=== PATIENT | female | born 1990 | race African-American/Black ===

== ENCOUNTER 2016-07-02 10:18 | Emergency (ER) | payer OTHER ==
[~2016-07-02] VITALS: Ht 167.6 cm; Wt 100.0 kg
[~2016-07-02 10:18] MED LIST: DOXY100C PO; MAXI5O EACH EYE; TRIA0.1L TOPICAL
[2016-07-02 10:20] VITALS: BP 132/73; PULSE 86; RESP 16; TEMP 97.7; O2SAT 98
[2016-07-02] MEDS ORDERED: SODIUM CHLOR 0.9% 1000 ML INJ 1,000 ML IV SCH (10:29)
[2016-07-02] MEDS ORDERED: ONDANSETRON HCL 4 MG/2 ML VIAL IVP ONE (10:30)
[2016-07-02] MEDS ORDERED: SODIUM CHLORIDE 0.9% FLUSH 5 ML FLUSH IVF PRN (10:30)
--- NOTE | 2016-07-02 10:32 | PD ---
HPI Chief Complaint: abdominal pain Time Seen by Provider: 10:29 Travel History International Travel<30 days: No Contact w/Intl Traveler<30days: No Traveled to known affect area: No History of Present Illness HPI 26-year-old female with no significant past medical issues, presents to the ER today because of one week history of lower abdominal pain, intermittent nausea and vomiting, currently abdominal pain as a 7 out of 10. She denies any urinary symptoms, fevers, diarrhea, vaginal discharge, or any other symptoms. She does not know of any sick contacts. Modifying Factors: None Associated Signs & Symptoms: Lower abdominal pains, nausea and vomiting intermittently for one week Risk Factors: None PFSH Past Medical History Asthma: Yes Diminished Hearing: No Reproductive: Yes (PCOS) Respiratory: Yes (asthma) : 3 Para: 1 Miscarriage: 2 Past Surgical History Section: Yes Social History Alcohol Use: Yes (occasional) Tobacco Use: No Substance Use: No Allergies-Medications (Allergen,Severity, Reaction): Coded Allergies: Penicillin (Verified Allergy, Severe, THROAT CALDERÓN, 07/02/16) Reported Meds & Prescriptions Reported Meds & Active Scripts Active Reported Multiple Vitamin 1 Tab 1 Tab PO DAILY Review of Systems Except as stated in HPI: all other systems reviewed are Neg Physical Exam Narrative GENERAL: Well-nourished, well-developed young -[place] female patient in no acute distress. SKIN: Warm and dry. HEAD: Normocephalic. EYES: No scleral icterus. No injection or drainage. NECK: Supple, trachea midline. CARDIOVASCULAR: Regular rate and rhythm without murmurs, gallops, or rubs. RESPIRATORY: Breath sounds equal bilaterally. No accessory muscle use. GASTROINTESTINAL: Abdomen soft, mild lower abdominal and diffuse tenderness without guarding or rebound, nondistended. MUSCULOSKELETAL: No cyanosis, or edema. BACK: Nontender without obvious deformity. No CVA tenderness. Data Data Last Documented VS Vital Signs Date Time Temp Pulse Resp B/P Pulse Ox O2 Delivery O2 Flow Rate FiO2 07/02/16 10:20 97.7 86 16 132/73 98 Room Air Orders Complete Blood Count With Diff (07/02/16 10:29) Comprehensive Metabolic Panel (07/02/16 10:29) Lipase (07/02/16 10:29) Urinalysis - C+S If Indicated (07/02/16 10:29) Iv Access Insert/Monitor (07/02/16 10:29) Ecg Monitoring (07/02/16 10:29) Oximetry (07/02/16 10:29) Ondansetron Inj (Zofran Inj) (07/02/16 10:30) Sodium Chlor 0.9% 1000 Ml Inj (Ns 1000 M (07/02/16 10:29) Sodium Chloride 0.9% Flush (Ns Flush) (07/02/16 10:30) Ed Urine Pregnancytest Poc (07/02/16 10:29) Urine Culture (07/02/16 11:10) Labs Laboratory Tests Test 07/02/16 07/02/16 11:10 11:25 Urine Color YELLOW Urine Turbidity HAZY Urine pH 6.0 Urine Specific [place] 1.028 Urine Protein TRACE mg/dL Urine Glucose (UA) NEG mg/dL Urine Ketones NEG mg/dL Urine Occult Blood SMALL Urine Nitrite NEG Urine Bilirubin NEG Urine Urobilinogen LESS THAN 2.0 MG/DL Urine Leukocyte Esterase NEG Urine RBC 10 /hpf Urine WBC 1 /hpf Urine Squamous Epithelial 9 /hpf Cells Urine Bacteria MOD /hpf Urine Hyaline Casts 1 /lpf Urine Mucus MANY /lpf Microscopic Urinalysis Comment CULTURE INDICATED White Blood Count 6.5 TH/MM3 Red Blood Count 4.21 MIL/MM3 Hemoglobin 12.5 GM/DL Hematocrit 37.4 % Mean Corpuscular Volume 88.8 FL Mean Corpuscular Hemoglobin 29.8 PG Mean Corpuscular Hemoglobin 33.5 % Concent Red Cell Distribution Width 13.0 % Platelet Count 346 TH/MM3 Mean Platelet Volume 8.2 FL Neutrophils (%) (Auto) 60.2 % Lymphocytes (%) (Auto) 30.8 % Monocytes (%) (Auto) 6.4 % Eosinophils (%) (Auto) 1.5 % Basophils (%) (Auto) 1.1 % Neutrophils # (Auto) 3.9 TH/MM3 Lymphocytes # (Auto) 2.0 TH/MM3 Monocytes # (Auto) 0.4 TH/MM3 Eosinophils # (Auto) 0.1 TH/MM3 Basophils # (Auto) 0.1 TH/MM3 CBC Comment DIFF FINAL Differential Comment Sodium Level 141 MEQ/L Potassium Level 3.7 MEQ/L Chloride Level 109 MEQ/L Carbon Dioxide Level 26.3 MEQ/L Anion Gap 6 MEQ/L Blood Urea Nitrogen 7 MG/DL Creatinine 0.62 MG/DL Estimat Glomerular Filtration 139 ML/MIN Rate Random Glucose 78 MG/DL Calcium Level 8.0 MG/DL Total Bilirubin 0.2 MG/DL Aspartate Amino Transf 20 U/L (AST/SGOT) Alanine Aminotransferase 30 U/L (ALT/SGPT) Alkaline Phosphatase 63 U/L Total Protein 6.7 GM/DL Albumin 3.2 GM/DL Lipase 130 U/L MDM Medical Decision Making Medical Screen Exam Complete: Yes Emergency Medical Condition: Yes Medical Record Reviewed: Yes Interpretation(s) Laboratory Tests Test 07/02/16 07/02/16 11:10 11:25 Urine Turbidity HAZY (CLEAR) Urine Occult Blood SMALL (NEG) Urine RBC 10 /hpf (0-3) Urine Bacteria MOD /hpf (NONE) Urine Mucus MANY /lpf (OCC) Chloride Level 109 MEQ/L (98-107) Calcium Level 8.0 MG/DL (8.5-10.1) Albumin 3.2 GM/DL (3.4-5.0) Differential Diagnosis Lower abdominal discomfort, nausea, vomitinggastroenteritis versus UTI versus Narrative Course Abdomen is benign and I do not suspect an acute intra-abdominal process. Lab work did not indicate any significant metabolic issues or any signs of significant leukocytosis or UTI. At this point, patient was given IV fluids and nausea medication and on reevaluation at 1:15 PM, is feeling much improved. My plan would be to release her with further symptomatic treatment and follow- up with primary care physician. Patient should return for any worsening in symptoms as needed. The plan has discussed with her and she states understanding. Diagnosis Primary Impression: UNSPECIFIED ABDOMINAL PAIN Med/Other Pt SpecificInfo: Prescription(s) given Scripts Ondansetron Odt (Zofran Odt)4 Mg Tab4 Mg SL Q6HR PRN (Nausea/Vomiting) #5 TAB Ref 0 Prov:[place] Izquierdo MD 07/02/16 Disposition: 01 DISCHARGE HOME Condition: Stable [place] Izquierdo MD Jul 02, 2016 10:32
[2016-07-02] MEDS ORDERED: MULTTAB67 PO (10:36)
[2016-07-02 11:40] LABS: AUTOMATED NEUTROPHIL # 3.9 TH/MM3 (1.8-7.7); BASOPHIL # 0.1 TH/MM3 (0-0.2); BASOPHIL % 1.1 % (0.0-2.0); EOSINOPHIL # 0.1 TH/MM3 (0-0.4); EOSINOPHIL % 1.5 % (0.0-4.0); HEMATOCRIT 37.4 % (35.0-46.0); HEMO FLAGS DIFF FINAL; LYMPH % 30.8 % (9.0-44.0); MEAN CELL VOLUME 88.8 FL (80.0-100.0); MEAN CORPUSCULAR HEMOGLOBIN 29.8 PG (27.0-34.0); MEAN CORPUSCULAR HGB CONC 33.5 % (32.0-36.0); MONO % 6.4 % (0.0-8.0); NEUT % 60.2 % (16.0-70.0); PLATELET COUNT 346 TH/MM3 (150-450); RED BLOOD COUNT 4.21 MIL/MM3 (4.00-5.30); WHITE BLOOD COUNT 6.5 TH/MM3 (4.0-11.0)
[2016-07-02 11:46] LABS: BACTERIA, URINE MOD /hpf; BLOOD, URINE SMALL (NEG); GLUCOSE,URINE NEG (NEG); HYALINE CAST, URINE 1 /lpf (RARE); KETONE, URINE NEG (NEG); MUCUS URINE MANY /lpf (OCC); NITRITE,URINE NEG (NEG); SQUAMOUS EPITHELIAL CELL URINE 9 /hpf (0-5); URINE COLOR YELLOW (YELLW/STRAW)
[2016-07-02 11:50] LABS: COMMENT (UR) CULTURE INDICATED; CULTURE IF INDICATED CULTURE INDICATED
[2016-07-02 13:01] LABS: ANION GAP 6 MEQ/L (5-15); AST (GOT) 20 U/L (15-37); BICARBONATE 26.3 MEQ/L (21.0-32.0); BLOOD UREA NITROGEN 7 MG/DL (7-18); CHLORIDE 109 MEQ/L (98-107); GLOMERULAR FILTRATION RATE 139 ML/MIN (>89); POTASSIUM 3.7 MEQ/L (3.5-5.1); SODIUM (NA) 141 MEQ/L (136-145)
[2016-07-02 13:04] LABS: ALKALINE PHOSPHATASE 63 U/L (45-117); ALT (GPT) 30 U/L (10-53); TOTAL BILIRUBIN ADULT 0.2 MG/DL (0.2-1.0)
[2016-07-02] MEDS ORDERED: ZOFR4TAB3 SL (13:19)
== END 2016-07-02 14:17 | disposition home or self-care (01) ==
LOC: NEPC 10:18
DX: J45.909 Unspecified asthma, uncomplicated (principal); R10.9 Unspecified abdominal pain
CPT/HCPCS: 80053; 81001; 83690; 84703; 85025; 87086; 96361; 96374; 99284; J2405; J7030

== ENCOUNTER 2016-07-14 12:19 | Emergency (ER) | payer OTHER ==
[~2016-07-14] VITALS: Ht 167.6 cm; Wt 100.0 kg
[~2016-07-14 12:19] MED LIST changes: -DOXY100C PO; -MAXI5O EACH EYE; +MULTTAB67 PO; -TRIA0.1L TOPICAL; +ZOFR4TAB3 SL
[2016-07-14 12:20] VITALS: BP 140/91; PULSE 93; RESP 16; TEMP 98.2; O2SAT 98
--- NOTE | 2016-07-14 13:42 | PD ---
HPI Chief Complaint: Abdominal Pain Time Seen by Provider: 13:39 Travel History International Travel<30 days: No Contact w/Intl Traveler<30days: No Traveled to known affect area: No History of Present Illness HPI 18-year-old female with history of PCOS presents to emergency department for evaluation of lower abdominal pain. Patient sent persistent, intermittently sharp, and cramping. Denies any urinary symptoms. Believes that she may be because her menstrual cycle was to start on July 03 but it was late. She has taken many negative [id number] test. States that she has increased amount of vaginal discharge but no bleeding. No fevers or chills. No chest or tightness. No nausea, vomiting, diarrhea. No other symptoms to report. PFSH Past Medical History Asthma: Yes Diminished Hearing: No Reproductive: Yes (PCOS) Respiratory: Yes (asthma) ?: Unknown : 3 Para: 1 Miscarriage: 2 Past Surgical History Section: Yes Social History Alcohol Use: Yes (occasional) Tobacco Use: No Substance Use: No Allergies-Medications (Allergen,Severity, Reaction): Coded Allergies: Penicillin (Verified Allergy, Severe, THROAT CALDERÓN, 07/02/16) Reported Meds & Prescriptions Reported Meds & Active Scripts Active Zofran Odt (Ondansetron Odt) 4 Mg Tab 4 Mg SL Q6HR PRN Reported Multiple Vitamin 1 Tab 1 Tab PO DAILY Review of Systems Except as stated in HPI: all other systems reviewed are Neg Physical Exam Narrative GENERAL: Well-nourished, well-developed female patient, ambulatory in no acute distress SKIN: Warm and dry. HEAD: Normocephalic. EYES: No scleral icterus. No injection or drainage. NECK: Supple, trachea midline. No JVD or lymphadenopathy. CARDIOVASCULAR: Regular rate and rhythm without murmurs, gallops, or rubs. RESPIRATORY: Breath sounds equal bilaterally. No accessory muscle use. GASTROINTESTINAL: Rotund, soft, slight suprapubic tenderness to deep palpation with no guarding and no rebound tenderness. Normoactive bowel sounds. MUSCULOSKELETAL: No cyanosis, or edema. BACK: Nontender without obvious deformity. No CVA tenderness. Data Data Last Documented VS Vital Signs Date Time Temp Pulse Resp B/P Pulse Ox O2 Delivery O2 Flow Rate FiO2 07/14/16 12:20 98.2 93 16 140/91 98 Orders Urinalysis - C+S If Indicated (07/14/16 13:32) Ed Urine Pregnancytest Poc (07/14/16 13:32) Labs Laboratory Tests Test 07/14/16 13:45 Urine Color YELLOW Urine Turbidity CLEAR Urine pH 5.0 Urine Specific [place] 1.011 Urine Protein NEG mg/dL Urine Glucose (UA) NEG mg/dL Urine Ketones NEG mg/dL Urine Occult Blood SMALL Urine Nitrite NEG Urine Bilirubin NEG Urine Urobilinogen LESS THAN 2.0 MG/DL Urine Leukocyte Esterase NEG Urine RBC 2 /hpf Urine WBC 1 /hpf Urine Squamous Epithelial 2 /hpf Cells Microscopic Urinalysis Comment CULT NOT INDICATED MDM Medical Decision Making Medical Screen Exam Complete: Yes Emergency Medical Condition: Yes Medical Record Reviewed: Yes Differential Diagnosis Menstrual cramping versus UTI versus STD versus PID versus Narrative Course 26-year-old female presents to emergency department for evaluation of lower abdominal pain. Patient was seen and evaluated earlier this month for similar complaint. Workup was essentially negative at that time. Urine and urine test is ordered. Once a medical bed becomes available, patient will be transferred and care assumed by that provider. [id number] patient is not in the waiting room when a room becomes available. Disposition: 07 AGAINST MEDICAL ADVICE Condition: Stable RylandMaximoMaeedward HECTOR Jul 14, 2016 13:42
[2016-07-14 14:18] LABS: BLOOD, URINE SMALL (NEG); COMMENT (UR) CULT NOT INDICATED; CULTURE IF INDICATED CULT NOT INDICATED; GLUCOSE,URINE NEG (NEG); KETONE, URINE NEG (NEG); NITRITE,URINE NEG (NEG); SQUAMOUS EPITHELIAL CELL URINE 2 /hpf (0-5); URINE COLOR YELLOW (YELLW/STRAW)
[2016-07-14] MEDS ORDERED: INOS500T PO (16:10)
== END 2016-07-14 14:21 | disposition left against medical advice (07) ==
LOC: NETRI 12:19
DX: R10.30 Lower abdominal pain, unspecified (principal)
CPT/HCPCS: 81001; 84703; 99283

== ENCOUNTER 2016-07-14 15:12 | Emergency (ER) | payer OTHER ==
[~2016-07-14] VITALS: Ht 167.6 cm; Wt 98.0 kg
[2016-07-14 15:14] VITALS: BP 129/80; PULSE 74; RESP 16; TEMP 97.4; O2SAT 100
[2016-07-14 15:39] LABS: GLUCOSE,URINE NEG (NEG); KETONE, URINE NEG (NEG); NITRITE,URINE NEG (NEG)
[2016-07-14 15:40] LABS: BLOOD, URINE MOD (NEG)
[2016-07-14 15:48] LABS: URINE COLOR YELLOW (YELLW/STRAW); WBC, URINE 0-2 /hpf (0-5)
[2016-07-14 15:49] LABS: BACTERIA, URINE FEW /hpf; COMMENT (UR) CULT NOT INDICATED; CULTURE IF INDICATED CULT NOT INDICATED; SQUAMOUS EPITHELIAL CELL URINE 0-5 /hpf (0-5)
[2016-07-14] MEDS ORDERED: INOS500T PO (16:10)
--- NOTE | 2016-07-14 17:16 | PD ---
HPI Chief Complaint: Distribution Manager Problem/Complaint Time Seen by Provider: 16:00 Travel History International Travel<30 days: No Contact w/Intl Traveler<30days: No Traveled to known affect area: No History of Present Illness HPI Patient is a 18-year-old female presents with suprapubic pain and vaginal discharge which she states is clear. Patient states that she's had these symptoms before and it might of been an STD. 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 She states "he never now". Patient denies any nausea vomiting diarrhea or vaginal bleeding. Denies any dysuria. Patient states symptoms for the past few days and no progression of her symptoms. PFSH Past Medical History Asthma: Yes Diminished Hearing: No Reproductive: Yes (PCOS) Respiratory: Yes (asthma) Tetanus Vaccination: < 5 Years Influenza Vaccination: Yes ?: Unknown LMP: 06/02/2017 : 3 Para: 1 Miscarriage: 2 Past Surgical History Section: Yes Social History Alcohol Use: Yes (Occ.) Tobacco Use: No Substance Use: No Allergies-Medications (Allergen,Severity, Reaction): Coded Allergies: Penicillin (Verified Allergy, Severe, THROAT CALDERÓN, 07/14/16) Reported Meds & Prescriptions Reported Meds & Active Scripts Active Reported Inositol 500 Mg Tab 2 Tab PO DAILY Multiple Vitamin 1 Tab 1 Tab PO DAILY Review of Systems Except as stated in HPI: all other systems reviewed are Neg Physical Exam Narrative GENERAL: [Well-developed well-nourished no apparent distress SKIN: Warm and dry. HEAD: Atraumatic. Normocephalic. EYES: Pupils equal and round. No scleral icterus. No injection or drainage. ENT: No nasal bleeding or discharge. Mucous membranes pink and moist. NECK: Trachea midline. No JVD. CARDIOVASCULAR: Regular rate and rhythm. No murmur appreciated. RESPIRATORY: No accessory muscle use. Clear to auscultation. Breath sounds equal bilaterally. GASTROINTESTINAL: Abdomen soft, non-tender, nondistended. Hepatic and splenic margins not palpable. Genitourinary: Exam was performed with a female nurse balloon pilot at all times, no discharge seen cervix normal no cervical motion tenderness no bimanual tenderness no labial lesion. This normal exam. MUSCULOSKELETAL: No obvious deformities. No clubbing. No cyanosis. No edema. NEUROLOGICAL: Awake and alert. No obvious cranial nerve deficits. Motor grossly within normal limits. Normal speech. PSYCHIATRIC: Appropriate mood and affect; insight and judgment normal. Data Data Last Documented VS Orders Urinalysis - C+S If Indicated (07/14/16 15:18) Ed Urine Pregnancytest Poc (07/14/16 15:18) Gc And Chlamydia Pcr (07/14/16 16:11) Wet Prep Profile (07/14/16 16:11) Labs MDM Medical Decision Making Medical Screen Exam Complete: Yes Emergency Medical Condition: Yes Differential Diagnosis Pelvic pain, vaginal bleeding, vaginal discharge, STD unlikely, , BV, CVA. Narrative Course Patient was roomed in the emergency department, she appears well in no apparent distress. She was offered pain medicine and declined. Pelvic exam and abdominal exam are benign. I did offer the patient and ultrasound however I think that this is incredibly low yield for her as well as she appears. I discussed with her could consider empirically treating her for STDs though given her low index of suspicion I suggested she could wait to see what the test results were. She opts to wait. I discussed with her symptoms need for follow-up with a tower helper for her yearly exam and returned ED criteria. She is stable for discharge at this time. Diagnosis Primary Impression: Vaginal discharge Additional Impression: Pelvic cramping Disposition: 01 DISCHARGE HOME Condition: Stable Angel Noel MD Jul 14, 2016 17:16 Pelvic cramping Angel Noel MD Jul 14, 2016 17:16
[2016-07-14 17:25] VITALS: BP 132/84; PULSE 78; RESP 16; O2SAT 100
[2016-07-14 21:37] LABS: CHLAMYDIA PCR NOT DETECTED (NOT DETECT); NEISSERIA PCR NOT DETECTED (NOT DETECT)
== END 2016-07-14 17:25 | disposition home or self-care (01) ==
LOC: PHED 15:12
DX: R10.2 Pelvic and perineal pain (principal); N89.8 Other specified noninflammatory disorders of vagina; Z87.09 Personal history of other diseases of the respiratory system; Z87.42 Personal history of other diseases of the female genital tract
CPT/HCPCS: 81001; 84703; 87210; 87491; 87591; 99284

== ENCOUNTER 2016-11-02 00:07 | Emergency (ER) | payer OTHER ==
[~2016-11-02] VITALS: Ht 167.6 cm; Wt 95.0 kg
[~2016-11-02 00:07] MED LIST changes: +INOS500T PO; -ZOFR4TAB3 SL
[2016-11-02 00:09] VITALS: BP 126/81; PULSE 78; RESP 16; TEMP 97.6; O2SAT 98
[2016-11-02] MEDS ORDERED: SODIUM CHLOR 0.9% 1000 ML INJ 1,000 ML IV ONE (00:23)
[2016-11-02] MEDS ORDERED: PROCHLORPERAZINE INJ 10 MG/2 ML VIAL IVP ONE (00:30)
[2016-11-02] MEDS ORDERED: SODIUM CHLORIDE 0.9% FLUSH 10 ML FLUSH IVF PRN (00:30)
[2016-11-02] MEDS ORDERED: diphenhydrAMINE HCL 50 MG/ML VIAL IVP ONE (00:30)
[2016-11-02] MEDS ORDERED: ACETAMINOPHEN 325 MG TAB PO ONE (00:30)
[2016-11-02 00:44] LABS: AUTOMATED NEUTROPHIL # 5.3 TH/MM3 (1.8-7.7); BASOPHIL # 0.1 TH/MM3 (0-0.2); BASOPHIL % 0.8 % (0.0-2.0); EOSINOPHIL # 0.3 TH/MM3 (0-0.4); EOSINOPHIL % 3.4 % (0.0-4.0); HEMATOCRIT 35.6 % (35.0-46.0); HEMO FLAGS DIFF FINAL; LYMPH % 28.7 % (9.0-44.0); LYMPHOCYTE # 2.5 TH/MM3 (1.0-4.8); MEAN CELL VOLUME 86.4 FL (80.0-100.0); MEAN CORPUSCULAR HEMOGLOBIN 29.8 PG (27.0-34.0); MEAN CORPUSCULAR HGB CONC 34.5 % (32.0-36.0); NEUT % 60.1 % (16.0-70.0); PLATELET COUNT 277 TH/MM3 (150-450); RED BLOOD COUNT 4.12 MIL/MM3 (4.00-5.30); RED CELL DISTRIBUTION WIDTH 12.9 % (11.6-17.2); WHITE BLOOD COUNT 8.7 TH/MM3 (4.0-11.0)
--- NOTE | 2016-11-02 01:11 | PD ---
HPI Chief Complaint: GI Complaint Time Seen by Provider: 00:23 Travel History International Travel<30 days: No Contact w/Intl Traveler<30days: No Traveled to known affect area: No History of Present Illness HPI 26-year-old female arrives describing a headache bifrontal in location and starts after eating or drinking. A sip of water causes a one hour headache states the patient. The symptoms have been present for about 4 days. She has had headaches in the past however this is a typical for her. She states the pain 7-8/10. She describes nausea and dizziness and lightheadedness. She has no photophobia or phonophobia. She has not vomited. She denies trying any over -the-counter medication. She denies coffee however denies any change in quantity. She's had no fever. PFSH Past Medical History Asthma: Yes Diminished Hearing: No Reproductive: Yes (PCOS) Respiratory: Yes (asthma) ?: Not LMP: 10/19/16 : 3 Para: 1 Miscarriage: 2 Past Surgical History Section: Yes Social History Alcohol Use: Yes (Occ.) Tobacco Use: No Substance Use: No Allergies-Medications (Allergen,Severity, Reaction): Coded Allergies: Penicillin (Verified Allergy, Severe, THROAT CALDERÓN, 11/02/16) Reported Meds & Prescriptions Reported Meds & Active Scripts Active Prochlorperazine Maleate 10 Mg Tab 10 Mg PO Q6H PRN Review of Systems Except as stated in HPI: all other systems reviewed are Neg General / Constitutional: No: Fever Eyes: No: Diploplia, Blurred Vision, Photophobia Neurologic: Positive: Headache Physical Exam Narrative GENERAL: 26-year-old female pleasant well-nourished well-developed SKIN: Focused skin assessment warm/dry. HEAD: Atraumatic. Normocephalic. EYES: Pupils equal and round. No scleral icterus. No injection or drainage. ENT: No nasal bleeding or discharge. Mucous membranes pink and moist. NECK: Trachea midline. No JVD. neck is supple CARDIOVASCULAR: Regular rate and rhythm. No murmur appreciated. RESPIRATORY: No accessory muscle use. Clear to auscultation. Breath sounds equal bilaterally. GASTROINTESTINAL: Abdomen soft, non-tender, nondistended. Hepatic and splenic margins not palpable. MUSCULOSKELETAL: No obvious deformities. No clubbing. No cyanosis. No edema. NEUROLOGICAL: Awake and alert. No obvious cranial nerve deficits. Motor grossly within normal limits. Normal speech. PSYCHIATRIC: Appropriate mood and affect; insight and judgment normal. Data Data Last Documented VS Vital Signs Date Time Temp Pulse Resp B/P Pulse Ox O2 Delivery O2 Flow Rate FiO2 11/02/16 03:14 100 Room Air 11/02/16 03:07 98.1 87 18 98/56 Vital signs reviewed Orders Complete Blood Count With Diff (11/02/16 00:23) Basic Metabolic Panel (Bmp) (11/02/16 00:23) Ecg Monitoring (11/02/16 00:23) Iv Access Insert/Monitor (11/02/16 00:23) Oximetry (11/02/16:23) Sodium Chloride 0.9% Flush (Ns Flush) (11/02/16 00:30) Acetaminophen (Tylenol) (11/02/16 00:30) Prochlorperazine Inj (Compazine Inj) (11/02/16 00:30) Diphenhydramine Inj (Benadryl Inj) (11/02/16 00:30) Sodium Chlor 0.9% 1000 Ml Inj (Ns 1000 M (11/02/16 00:23) Urinalysis - C+S If Indicated (11/02/16 02:08) Labs Laboratory Tests Test 11/02/16 11/02/16 00:35 02:14 White Blood Count 8.7 TH/MM3 Red Blood Count 4.12 MIL/MM3 Hemoglobin 12.3 GM/DL Hematocrit 35.6 % Mean Corpuscular Volume 86.4 FL Mean Corpuscular Hemoglobin 29.8 PG Mean Corpuscular Hemoglobin 34.5 % Concent Red Cell Distribution Width 12.9 % Platelet Count 277 TH/MM3 Mean Platelet Volume 7.3 FL Neutrophils (%) (Auto) 60.1 % Lymphocytes (%) (Auto) 28.7 % Monocytes (%) (Auto) 7.0 % Eosinophils (%) (Auto) 3.4 % Basophils (%) (Auto) 0.8 % Neutrophils # (Auto) 5.3 TH/MM3 Lymphocytes # (Auto) 2.5 TH/MM3 Monocytes # (Auto) 0.6 TH/MM3 Eosinophils # (Auto) 0.3 TH/MM3 Basophils # (Auto) 0.1 TH/MM3 CBC Comment DIFF FINAL Differential Comment Sodium Level 143 MEQ/L Potassium Level 3.5 MEQ/L Chloride Level 108 MEQ/L Carbon Dioxide Level 27.1 MEQ/L Anion Gap 8 MEQ/L Blood Urea Nitrogen 13 MG/DL Creatinine 0.76 MG/DL Estimat Glomerular Filtration 110 ML/MIN Rate Random Glucose 105 MG/DL Calcium Level 9.0 MG/DL Urine Color YELLOW Urine Turbidity CLEAR Urine pH 6.0 Urine Specific [place] 1.028 Urine Protein TRACE mg/dL Urine Glucose (UA) NEG mg/dL Urine Ketones NEG mg/dL Urine Occult Blood TRACE Urine Nitrite NEG Urine Bilirubin NEG Urine Urobilinogen LESS THAN 2.0 MG/DL Urine Leukocyte Esterase NEG Urine RBC 5 /hpf Urine WBC LESS THAN 1 /hpf Urine Bacteria RARE /hpf Urine Mucus MOD /lpf Microscopic Urinalysis Comment CULT NOT INDICATED MDM Medical Decision Making Medical Screen Exam Complete: Yes Emergency Medical Condition: Yes Medical Record Reviewed: Yes Differential Diagnosis migraine, tension headache, cluster headache, electrolyte imbalance Narrative Course CBC & BMP Diagram 11/02/16 00:35 Urinalysis shows no UTI The patient is resting comfortably and feels better, is alert and in no distress. The patients results and examination findings were discussed. The repeat examination is unremarkable and benign. The history, exam, diagnostic testing, and current condition do not suggest any significant pathology to warrant further testing, continued ED treatment, admission, or surgical evaluation at this point. The vital signs have been stable. The patient does not have uncontrollable pain, intractable vomiting, or other significant symptoms. The patient's condition is stable and appropriate for discharge. The patient will pursue further outpatient evaluation with a primary care physician or other designated or consulting physician as indicated in the discharge instructions. The patient expressed understanding and was agreeable with this plan. Diagnosis Primary Impression: Cephalgia Qualified Code: R51 - Nonintractable episodic headache, unspecified headache type Additional Impression: Nausea Referrals: Primary Care Physician 2 days Additional Instructions: You have a choice when it comes to health care, and we are glad that you chose [facility]. Hopefully, we have met your expectations on today's visit. You are welcome to return to [facility] at any time, as we are committed to meeting the health care needs of our community. Med/Other Pt SpecificInfo: Prescription(s) given Scripts Prochlorperazine Maleate 10 Mg Tab10 Mg PO Q6H PRN (NAUSEA OR VOMITING) #10 TAB Ref 0 Prov:Martin Junior MD 11/02/16 Disposition: 01 DISCHARGE HOME Condition: Stable Martin Junior MD November 02, 2016 01:11
[2016-11-02 01:28] LABS: BICARBONATE 27.1 MEQ/L (21.0-32.0); POTASSIUM 3.5 MEQ/L (3.5-5.1)
[2016-11-02] MEDS ORDERED: PROC10TA PO (01:58)
[2016-11-02 03:07] VITALS: BP 98/56; PULSE 87; RESP 18; TEMP 98.1; O2SAT 100
[2016-11-02 03:09] LABS: BACTERIA, URINE RARE /hpf; BLOOD, URINE TRACE (NEG); COMMENT (UR) CULT NOT INDICATED; CULTURE IF INDICATED CULT NOT INDICATED; GLUCOSE,URINE NEG (NEG); KETONE, URINE NEG (NEG); MUCUS URINE MOD /lpf (OCC); NITRITE,URINE NEG (NEG); URINE COLOR YELLOW (YELLW/STRAW)
[2016-11-02 03:14] VITALS: O2SAT 100
== END 2016-11-02 03:13 | disposition home or self-care (01) ==
LOC: NEPC 00:07
DX: R51 Headache (principal); R11.0 Nausea; R42 Dizziness and giddiness; Z87.09 Personal history of other diseases of the respiratory system; Z87.42 Personal history of other diseases of the female genital tract
CPT/HCPCS: 80048; 81001; 85025; 96374; 96375; 99284; J0780; J1200; J7030

== ENCOUNTER 2017-05-03 09:26 | Emergency (ER) | payer MEDICAID, OTHER ==
[~2017-05-03] VITALS: Ht 167.6 cm; Wt 86.5 kg
[2017-05-03 09:26] VITALS: BP 126/79; PULSE 81; RESP 16; TEMP 98.2; O2SAT 100
[~2017-05-03 09:26] MED LIST changes: -INOS500T PO; -MULTTAB67 PO; +PROC10TA PO
[2017-05-03] MEDS ORDERED: SODIUM CHLOR 0.9% 1000 ML INJ 1,000 ML IV SCH (09:56)
[2017-05-03] MEDS ORDERED: ONDANSETRON HCL 4 MG/2 ML VIAL IVP ONE (10:00)
[2017-05-03] MEDS ORDERED: SODIUM CHLORIDE 0.9% FLUSH 10 ML FLUSH IV FLUSH PRN (10:00)
--- NOTE | 2017-05-03 10:15 | PD ---
HPI Chief Complaint: GI Complaint Time Seen by Provider: 10:30 Travel History International Travel<30 days: No Contact w/Intl Traveler<30days: No Traveled to known affect area: No History of Present Illness HPI 27-year-old female presents to the emergency department complaining of upper abdominal pain with vomiting. 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 Patient describes the pain as sharp and diffuse but has since localized to the upper abdominal area right greater than left. Patient denies nausea or vomiting at this time. States her bowel movements have been normal and nonbloody. States yesterday she had a smoothie and some fish which is not out of the ordinary for her. Patient takes probiotics and cranberry and has done so for years. Fever, chills. She is currently on her menstrual period. Last oral intake last night around 9 PM. Patient denies any chronic medical issues or illicit drug use. She's had a C- section but otherwise no surgeries. PFSH Past Medical History Asthma: Yes Diminished Hearing: No Reproductive: Yes (PCOS) Respiratory: Yes (asthma) Tetanus Vaccination: < 5 Years Influenza Vaccination: No ?: Not : 3 Para: 1 Miscarriage: 2 Past Surgical History Section: Yes Social History Alcohol Use: Yes (Occ.) Tobacco Use: No Substance Use: No Allergies-Medications (Allergen,Severity, Reaction): Coded Allergies: penicillin G (Unverified Allergy, Severe, THROAT CALDERÓN, 05/03/17) Reported Meds & Prescriptions Reported Meds & Active Scripts Active Zofran Odt (Ondansetron Odt) 4 Mg Tab 4 Mg SL Q8HR PRN 5 Days Review of Systems Except as stated in HPI: all other systems reviewed are Neg Physical Exam Narrative GENERAL: Well-developed well-nourished in no apparent distress, hair and makeup done. SKIN: Focused skin assessment warm/dry. HEAD: Atraumatic. Normocephalic. EYES: Pupils equal and round. No scleral icterus. No injection or drainage. ENT: No nasal bleeding or discharge. Mucous membranes pink and moist. NECK: Trachea midline. No JVD. CARDIOVASCULAR: Regular rate and rhythm. No murmur appreciated. RESPIRATORY: No accessory muscle use. Clear to auscultation. Breath sounds equal bilaterally. GASTROINTESTINAL: Abdomen soft, nondistended. Hepatic and splenic margins not palpable. TTP over right and left upper quadrants, right greater than left. No rebound tenderness, no radiation of pain. MUSCULOSKELETAL: No obvious deformities. No clubbing. No cyanosis. No edema. No CVA tenderness NEUROLOGICAL: Awake and alert. No obvious cranial nerve deficits. Motor grossly within normal limits. Normal speech. PSYCHIATRIC: Appropriate mood and affect; insight and judgment normal. Data Data Last Documented VS Vital Signs Date Time Temp Pulse Resp B/P (MAP) Pulse Ox O2 Delivery O2 Flow Rate FiO2 05/03/17 10:32 69 17 121/85 (97) 100 Room Air 05/03/17 09:26 98.2 Orders Orders Complete Blood Count With Diff (05/03/17 09:56) Comprehensive Metabolic Panel (05/03/17 09:56) Lipase (05/03/17 09:56) Urinalysis - C+S If Indicated (05/03/17 09:56) Us Abdomen Gallbladder (05/03/17 ) Iv Access Insert/Monitor (05/03/17 09:56) Ecg Monitoring (05/03/17 09:56) Oximetry (05/03/17 09:56) Ondansetron Inj (Zofran Inj) (05/03/17 10:00) Sodium Chlor 0.9% 1000 Ml Inj (Ns 1000 M (05/03/17 09:56) Sodium Chloride 0.9% Flush (Ns Flush) (05/03/17 10:00) Ed Urine Pregnancytest Poc (05/03/17 09:56) Ed Discharge Order (05/03/17 11:19) Labs Laboratory Tests Test 05/03/17 10:20 White Blood Count 5.8 TH/MM3 Red Blood Count 4.23 MIL/MM3 Hemoglobin 12.8 GM/DL Hematocrit 37.5 % Mean Corpuscular Volume 88.7 FL Mean Corpuscular Hemoglobin 30.4 PG Mean Corpuscular Hemoglobin Concent 34.2 % Red Cell Distribution Width 12.7 % Platelet Count 260 TH/MM3 Mean Platelet Volume 7.1 FL Neutrophils (%) (Auto) 63.8 % Lymphocytes (%) (Auto) 26.4 % Monocytes (%) (Auto) 6.7 % Eosinophils (%) (Auto) 1.8 % Basophils (%) (Auto) 1.3 % Neutrophils # (Auto) 3.7 TH/MM3 Lymphocytes # (Auto) 1.5 TH/MM3 Monocytes # (Auto) 0.4 TH/MM3 Eosinophils # (Auto) 0.1 TH/MM3 Basophils # (Auto) 0.1 TH/MM3 CBC Comment DIFF FINAL Differential Comment Urine Color YELLOW Urine Turbidity HAZY Urine pH 6.0 Urine Specific [place] 1.025 Urine Protein TRACE mg/dL Urine Glucose (UA) NEG mg/dL Urine Ketones NEG mg/dL Urine Occult Blood MOD Urine Nitrite NEG Urine Bilirubin NEG Urine Urobilinogen LESS THAN 2.0 MG/DL Urine Leukocyte Esterase TRACE Urine RBC 4-9 /hpf Urine WBC 3-5 /hpf Urine Squamous Epithelial Cells 6-8 /hpf Urine Bacteria FEW /hpf Urine Mucus MANY /lpf Microscopic Urinalysis Comment CULT NOT INDICATED Blood Urea Nitrogen 9 MG/DL Creatinine 0.75 MG/DL Random Glucose 84 MG/DL Total Protein 8.4 GM/DL Albumin 4.1 GM/DL Calcium Level 9.0 MG/DL Alkaline Phosphatase 74 U/L Aspartate Amino Transf (AST/SGOT) 24 U/L Alanine Aminotransferase (ALT/SGPT) 34 U/L Total Bilirubin 0.6 MG/DL Sodium Level 139 MEQ/L Potassium Level 3.3 MEQ/L Chloride Level 107 MEQ/L Carbon Dioxide Level 26.2 MEQ/L Anion Gap 6 MEQ/L Estimat Glomerular Filtration Rate 111 ML/MIN Lipase 118 U/L [facility] Medical Decision Making Medical Screen Exam Complete: Yes Emergency Medical Condition: Yes Differential Diagnosis Gastritis versus cholecystitis versus cholangitis versus duodenal ulcer versus pancreatitis versus viral syndrome Narrative Course See Dr. Vogt's note as well. Urinalysis- Pattern consistent with contamination- pt currently on menstrual cycle and large number of squamous cells.. Labs- mild hypokalemia, consistent with pt history of vomiting. Patient discharged with gastroenteritis Pt discharged with zofran and work note for 2 days Patient to follow up with primary care physician within 2 days. Return to the emergency department for worsening or persistent symptoms Diagnosis Primary Impression: Gastroenteritis Referrals: Primary Care Physician Additional Instructions: Follow-up with her primary care physician within 2-3 days Take medication as prescribed If your symptoms persist or worsen return to the emergency department Scripts Ondansetron Odt (Zofran Odt) 4 Mg Tab 4 MG SL Q8HR Y for Nausea/Vomiting for 5 Days, #15 TAB 0 Refills Prov: Hazel Vogt MD 05/03/17 Disposition: 01 DISCHARGE HOME Condition: Stable Latonya Stewart May 03, 2017 10:15
--- NOTE | 2017-05-03 10:20 | PD ---
Data Data Last Documented VS Vital Signs Date Time Temp Pulse Resp B/P (MAP) Pulse Ox O2 Delivery O2 Flow Rate FiO2 05/03/17 09:26 98.2 81 16 126/79 (95) 100 Room Air Orders Orders Complete Blood Count With Diff (05/03/17 09:56) Comprehensive Metabolic Panel (05/03/17 09:56) Lipase (05/03/17 09:56) Urinalysis - C+S If Indicated (05/03/17 09:56) Us Abdomen Gallbladder (05/03/17 ) Iv Access Insert/Monitor (05/03/17 09:56) Ecg Monitoring (05/03/17 09:56) Oximetry (05/03/17 09:56) Ondansetron Inj (Zofran Inj) (05/03/17 10:00) Sodium Chlor 0.9% 1000 Ml Inj (Ns 1000 M (05/03/17 09:56) Sodium Chloride 0.9% Flush (Ns Flush) (05/03/17 10:00) Ed Urine Pregnancytest Poc (05/03/17 09:56) MDM Supervised Visit with ROWDY: Yes Narrative Course The history, exam, and medical decision-making in the associated midlevel provider note were completed with my assistance. I reviewed and agree with the findings presented. I attest that I had a [id number] encounter with the patient on the same day, and personally performed and documented my assessment and findings in the medical record. *My assessment and Findings: This is a 27-year-old female who presents to the emergency department with 24 hours of vomiting and abdominal pain. She describes her abdominal pain as in the upper abdomen. She is more tender in the right upper quadrant. Patient requires labs and an ultrasound to evaluate the gallbladder. I suspect she has gastroenteritis as she has a benign abdomen otherwise. If her ultrasound and labs are reassuring at think she can be discharged with antiemetics and a work note. Scripts No Active Prescriptions or Reported Meds Hazel Vogt MD May 03, 2017 10:20
[2017-05-03 10:32] VITALS: BP 121/85; PULSE 69; RESP 17; O2SAT 100
[2017-05-03 10:37] LABS: AUTOMATED NEUTROPHIL # 3.7 TH/MM3 (1.8-7.7); BASOPHIL # 0.1 TH/MM3 (0-0.2); BASOPHIL % 1.3 % (0.0-2.0); EOSINOPHIL # 0.1 TH/MM3 (0-0.4); EOSINOPHIL % 1.8 % (0.0-4.0); HEMATOCRIT 37.5 % (35.0-46.0); HEMO FLAGS DIFF FINAL; LYMPH % 26.4 % (9.0-44.0); LYMPHOCYTE # 1.5 TH/MM3 (1.0-4.8); MEAN CELL VOLUME 88.7 FL (80.0-100.0); MEAN CORPUSCULAR HEMOGLOBIN 30.4 PG (27.0-34.0); MEAN CORPUSCULAR HGB CONC 34.2 % (32.0-36.0); MONO % 6.7 % (0.0-8.0); NEUT % 63.8 % (16.0-70.0); PLATELET COUNT 260 TH/MM3 (150-450); RED BLOOD COUNT 4.23 MIL/MM3 (4.00-5.30); RED CELL DISTRIBUTION WIDTH 12.7 % (11.6-17.2); WHITE BLOOD COUNT 5.8 TH/MM3 (4.0-11.0)
[2017-05-03 10:55] LABS: ANION GAP 6 MEQ/L (5-15); AST (GOT) 24 U/L (15-37); BICARBONATE 26.2 MEQ/L (21.0-32.0); BLOOD UREA NITROGEN 9 MG/DL (7-18); CHLORIDE 107 MEQ/L (98-107); GLOMERULAR FILTRATION RATE 111 ML/MIN (>89); POTASSIUM 3.3 MEQ/L (3.5-5.1); SODIUM (NA) 139 MEQ/L (136-145)
[2017-05-03 10:56] LABS: BLOOD, URINE MOD (NEG); GLUCOSE,URINE NEG (NEG); KETONE, URINE NEG (NEG); NITRITE,URINE NEG (NEG); URINE COLOR YELLOW (YELLW/STRAW)
[2017-05-03 10:59] LABS: ALKALINE PHOSPHATASE 74 U/L (45-117); ALT (GPT) 34 U/L (10-53); TOTAL BILIRUBIN ADULT 0.6 MG/DL (0.2-1.0)
[2017-05-03 11:05] LABS: BACTERIA, URINE FEW /hpf; COMMENT (UR) CULT NOT INDICATED; CULTURE IF INDICATED CULT NOT INDICATED; MUCUS URINE MANY /lpf (OCC)
--- NOTE | 2017-05-03 11:11 | RADRPT ---
EXAM DATE/TIME: 05/03/2017 10:33 [facility] COMPARISON: No previous studies available for comparison. INDICATIONS : Right upper quadrant pain. MEDICAL HISTORY : Asthma. Polycystic ovarian syndrome. SURGICAL HISTORY : section. ENCOUNTER: Initial ACUITY: 1 day PAIN SCORE: 4/10 LOCATION: Right upper quadrant MEASUREMENTS: LIVER: 13.3 cm length COMMON DUCT: 3 mm RIGHT KIDNEY: 10.6 x 3.6 x 4.4 cm FINDINGS: LIVER: Normal echotexture without focal lesion or ductal dilatation. COMMON DUCT: No intraluminal mass or stone visualized. GALLBLADDER: Contains no stones, demonstrates no wall thickening or pericholecystic fluid. PANCREAS: The visualized portions are within normal limits. RIGHT KIDNEY: No evidence of hydronephrosis, stone, or mass. CONCLUSION: Right upper quadrant ultrasound within normal limits. Edmar Mi MD on May 03, 2017 at 11:09 Board Certified Radiologist. This report was verified electronically.
[2017-05-03] MEDS ORDERED: ZOFR4TAB3 SL (11:19)
[2017-05-03 11:27] VITALS: BP 119/72; PULSE 65; RESP 17; O2SAT 100
== END 2017-05-03 11:52 | disposition home or self-care (01) ==
LOC: NEPD 09:26
DX: K52.9 Noninfective gastroenteritis and colitis, unspecified (principal); E87.6 Hypokalemia; J45.909 Unspecified asthma, uncomplicated; Z88.0 Allergy status to penicillin
CPT/HCPCS: 76705; 80053; 81001; 83690; 84703; 85025; 96361; 96374; 99285; J2405; J7030